=== PATIENT | male | born 1925 | race Caucasian/White ===

== ENCOUNTER 2016-08-26 20:32 | Emergency (ER) | payer OTHER ==
[~2016-08-26] VITALS: Ht 157.5 cm; Wt 61.2 kg
[~2016-08-26 20:32] MED LIST: ACIDOPHILUS1 EACH PO; ASMANEX220 MC1 PO; ASPIRIN EC81 M1 PO; BACTRIM DS TAB1 EACH PO; COMBIVENT RESPIM4 GM PO; FERROUS SULFAT325 M3 PO; FINASTERIDE5 MG PO; FUROSEMIDE40 M1 PO; GLIPIZIDE10 M2 PO; JANUVIA100 M1 PO; LEVEMIR FL100 UNIT/1 SC; LEVEMIR100 UNIT/1 SC; LOPRESSOR 25MG25 MG PO; METFORMIN HCL500 M3 PO; METOLAZONE2.5 M1 PO; METOPROLOL TART25 M1 PO; NITROSTAT0.4 MG TOP; NOVOLOG MI100 UNIT/2 SC; NOVOLOG100 UNIT/2; NOVOLOG100 UNIT/2 SC; PERCOCET 5-3251 EACH PO; PIOGLITAZONE15 MG PO; POTASSIUM CHLO10 ME4 PO; SENNA8.6 M3 PO; SIMVASTATIN20 M2 PO; TAMSULOSIN HYD0.4 MG PO; VITAMIN B-121000 MC3 PO; ZOLPIDEM TARTRAT5 MG PO
[2016-08-26 20:57] LABS: ABSOLUTE BASOPHIL COUNT 0 /CUMM (0.0-0.2); ABSOLUTE EOSINOPHIL COUNT 0.2 /CUMM (0.0-0.7); ABSOLUTE GRANULOCYTE CT 7.1 /CUMM (1.4-6.5); ABSOLUTE LYMPH COUNT 0.8 /CUMM (1.2-3.4); ABSOLUTE MONOCYTE COUNT 0.6 /CUMM (0.10-0.60); BASOPHIL % 0.4 % (0.0-2.0); EOSINOPHIL % 1.9 % (0-5); GRANULOCYTE % 81.5 % (42.2-75.2); HEMATOCRIT 32.1 % (42-52); MEAN CORPUSCULAR HGB 31.7 PG (27.0-31.0); MEAN CORPUSCULAR HGB CONC 33.3 G/DL (33.0-37.0); MEAN PLATELET VOLUME 6.8 FL (7.4-10.4); PLATELET COUNT 335 /CUMM (130-400); RBC DISTRIBUTION WIDTH 13.9 % (11.5-14.5); RED BLOOD CELL CT 3.38 /CUMM (4.70-6.10); WHITE BLOOD CELL COUNT 8.8 /CUMM (4.8-10.8)
--- NOTE | 2016-08-26 22:57 | RADIOLOGY REPORT ---
EXAMINATION: XR ABDOMEN MULTIPLE VIEWS CLINICAL INDICATION: Obstipation COMPARISON: None TECHNIQUE: Upright supine abdomen FINDINGS: Large volume of gas in the colon. The cecum is distended to a transverse diameter of 12 cm. There is moderate volume of stool in the colon. Most of the stool is in the transverse and descending colon. Colonic bowel loops appear to be redundant. No significant gaseous distention of the small bowel loops. No evidence of pneumatosis or free air. Bowel pattern may be chronic or due to distal large bowel obstruction. Sternal suture wires seen lower chest. Surgical clips in the right groin. Multilevel degenerative change of the spine. IMPRESSION: Large volume of gas in large bowel. Moderate volume of stool in the colon most of which is in the transverse colon. Bowel pattern could be chronic or due to distal large bowel obstruction.
--- NOTE | 2016-08-27 00:20 | ED GI/GU/ABDOMINAL COMPLAINT ---
History of Present Illness General Chief Complaint: Abdominal Pain/Flank Pain Stated Complaint: CONSTIPATION X3 DAYS, ABD PAIN Source: patient, family, old records Exam Limitations: no limitations Vital Signs & Intake/Output Vital Signs & Intake/Output Vital Signs Date Time Temp Pulse Resp B/P B/P Pulse O2 O2 Flow FiO2 Mean Ox Delivery Rate 08/27 0246 97.2 82 18 127/65 96 Room Air 08/26 2254 96.8 97 20 173/83 97 Room Air 08/26 2039 99.0 90 20 162/72 97 Room Air ED Intake and Output 08/27 0000 08/26 1200 Intake Total Output Total Balance Patient 135 lb Weight Weight Reported by Patient Measurement Method Allergies Coded Allergies: polymyxin B (RASH 08/26/16) Reconcile Medications Cyanocobalamin (Vitamin B-12) 1,000 MCG TABLET 1 TAB PO DAILY SUPPLEMENT ( Reported) Ferrous Sulfate 325 MG TABLET 1 TAB PO 1700 SUPPLEMENT (Reported) Furosemide 40 MG TABLET 1 TAB PO BID WATER PILL (Reported) Insulin Aspart (Novolog) 100 UNIT/1 ML VIAL 0 UNITS SC TIDAC diabetes BEFORE MEALS Blood Insulin Sugar Units <80 0 81-100 0 101-150 2 UNITS 151-200 3 UNITS 201-250 4 UNITS 251-300 5 UNITS 301-350 6 UNITS 351-400 6 UNITS >400 8 UNITS & Call Doctor Insulin Detemir (Levemir Flextouch) 100 UNIT/1 ML INSULN.PEN 8 UNITS SC DAILY DIABETES Ipratropium/Albuterol Sulfate (Combivent Respimat Inhal [place]) 4 GM MIST.INHAL 2 PUFF PO DAILY BREATHING PROBLEMS (Reported) Metoprolol Tartrate 25 MG TABLET 0.5 TAB PO BID HEART (Reported) Mometasone Furoate (Asmanex) 220 MCG AER.POW.BA 2 PUFF PO AT BEDTIME copd ( Reported) Simvastatin (Simvastatin*) 20 MG TABLET 1 TAB PO QPM CHOLESTEROL (Reported) Triage Note: PT TO ED C/O ACHING PAIN ACROSS LOW ABD CONSTANT SINCE YESTERDAY AFTERNOON. DENIES N/V/D. HAS INDWELLING HOOD CATH MARY LEG BAG. USUALLY MOVES BOWELS ONCE A DAY, SOMETIMES GOES LONGER, EVERY 2-3 DAYS. STATES NO BM FOR 3 DAYS AND 2 DAYS PRIOR WERE SMALL BM'S. PMH OF IDDM. DID NOT EAT DINNER TONIGHT, DID NOT TAKE INSULIN TONIGHT. 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 yes Onset: 3 days Duration: day(s):, constant, continues in ED, getting worse Timing: recent history Quality/Severity: aching, fullness, moderate Location: generalized abdomen Radiation: no radiation Activities at Onset: none Prior Abdominal Problems: similar symptoms Past Sexual History: Unobtainable at this time Modifying Factors: Worsens With: eating, palpation. Associated Symptoms: abdominal pain, loss of appetite HPI: 3 days prior to admission patient last moved his bowels. 2 days prior to this he notes passing only small amounts of fecal matter. He complains of generalized abdominal pain worse with eating palpation decreased appetite. He denies fever chills nausea vomiting diarrhea chest pain cough shortness of breath headache dysuria rash bleeding. Past History Travel History Traveled to [place] past 21 day No Medical History Any Pertinent Medical History? see below for history Neurological: NONE EENT: NONE Cardiovascular: CAD, CHF, hypertension, DYSLIPIDEMIA ISCHEMIC HEART DISEASE Respiratory: COPD Gastrointestinal: NONE Hepatic: NONE Renal: benign prost hyperplasia, URINARY RETENTION Musculoskeletal: TOE AMPUTATION Psychiatric: NONE Endocrine: diabetes Blood Disorders: NONE Cancer(s): NONE History of MRSA: No History of VRE: Yes History of CDIFF: No Pneumonia Vaccine: 09/16/13 Surgical History Surgical History: CABG, Toe amputations Psychosocial History Who do you live with Son Services at Home Nursing What is your primary language Jordanian Tobacco Use: Quit >30 days ago ETOH Use: occasional use Illicit Drug Use: denies illicit drug use Family History Family History, If Any: FATHER Relation not specified for: FH: stomach cancer Hx Contributory? No Review of Systems Review of Systems Constitutional: Reports: no symptoms. EENTM: Reports: no symptoms. Respiratory: Reports: no symptoms. Cardiovascular: Reports: no symptoms. GI: Reports: see HPI, abdominal pain, bloating, constipation. Genitourinary: Reports: no symptoms. Musculoskeletal: Reports: no symptoms. Skin: Reports: no symptoms. Neurological/Psychological: Reports: no symptoms. Hematologic/Endocrine: Reports: no symptoms. Immunologic/Allergic: Reports: no symptoms. All Other Systems: Reviewed and Negative Physical Exam Physical Exam General Appearance: well developed/nourished, alert, awake, anxious, moderate distress, obese Head: atraumatic, normal appearance Eyes: Bilateral: normal appearance, PERRL, EOMI, normal inspection. Ears, Nose, Throat, Mouth: hearing grossly normal, moist mucous membrane Neck: normal inspection, supple, full range of motion, normal alignment, no midline tenderness Respiratory: normal breath sounds, chest non-tender, no respiratory distress, quiet respiration, lungs clear Cardiovascular: regular rate/rhythm, normal peripheral pulses, norml femoral pulses equa Peripheral Pulses: 4+ carotid (R), 4+ carotid (L) Gastrointestinal: normal bowel sounds, soft, distention Male Genitals: normal genitalia Back: normal inspection, normal range of motion Extremities: normal range of motion, no ligament instability Neurologic/Psych: no motor/sensory deficits, awake, alert, oriented x 3, normal gait, normal mood/affect, 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 No Severe Sepsis Present: No Septic Shock Present: No Progress Differential Diagnosis: bowel obstruction Plan of Care: Orders Procedure Date/time Status Enema 08/27 133 Active Enema 08/26 2312 Active COMPREHENSIVE METABOLIC PANEL 08/26 2044 Complete CBC WITHOUT DIFFERENTIAL 08/26 2044 Complete Laboratory Tests 08/26/162047: Anion Gap 14, Estimated GFR 48 L, BUN/Creatinine Ratio 45.0 H, Glucose 230 H, Calcium 8.8, Total Bilirubin 0.4, AST 20, ALT 36, Alkaline Phosphatase 112, Total Protein 7.0, Albumin 4.2, Globulin 2.8, Albumin/Globulin Ratio 1.5, CBC w Diff NO MAN DIFF REQ, RBC 3.38 L, MCV 95.0 H, MCH 31.7 H, RDW 13.9, MPV 6.8 L, Gran % 81.5 H, Lymphocytes % 8.9 L, Monocytes % 7.3, Eosinophils % 1.9, Basophils % 0.4, Absolute Granulocytes 7.1 H, Absolute Lymphocytes 0.8 L, Absolute Monocytes 0.6, Absolute Eosinophils 0.2, Absolute Basophils 0, PUBS MCHC 33.3 Diagnostic Imaging: Viewed by Me: Radiology Read. Discussed w/RAD: Radiology Read. Radiology Impression: Large volume of gas in large bowel. Moderate volume of stool in the colon most of which is in the transverse colon. Bowel pattern could be chronic or due to distal large bowel obstruction. Initial ED EKG: none Comments: Improved after enemas, mag citrate. Departure Departure Time of Disposition: 0600 Disposition: HOME OR SELF CARE Condition: Stable Clinical Impression Primary Impression: Obstipation Referrals: Ruby LEDESMA MD (PCP/Family) Departure Forms: Customer Survey General Discharge Information Prescriptions: Current Visit Scripts Peg 3350/Na Sulf,Bicarb,Cl/KCl (Golytely Solution) 0 PO SEE ADMIN CRITERIA #1 GAL 1 cup every 10 minutes until rectal effluent runs clear
[2016-08-27] MEDS ORDERED: GOLYTELY SOLU4000 ML PO (05:39)
[2016-08-27 06:16] VITALS: BP 121/70
== END 2016-08-27 06:32 ==
LOC: ERH 20:32
PROVIDERS: Emergency Medicine
DX: K59.00 Constipation, unspecified (principal)
CPT/HCPCS: 74020

== ENCOUNTER 2016-10-01 14:20 | Emergency (ER) | payer OTHER ==
[~2016-10-01] VITALS: Ht 157.5 cm; Wt 64.4 kg
[~2016-10-01 14:20] MED LIST changes: +GOLYTELY SOLU4000 ML PO
--- NOTE | 2016-10-01 15:15 | RADIOLOGY REPORT ---
EXAMINATION: XR HIP, RIGHT CLINICAL INFORMATION: Trauma COMPARISON: 01/03/2012 TECHNIQUE: Two views of the right hip. AP pelvis FINDINGS: AP pelvis: Moderate to bilateral osteoarthritis in the hips. No significant progression on the right. The pelvic ring is intact. No acute fracture. Pronounced degenerative changes in the lower lumbar spine. Extensive vascular calcification. Surgical clips reidentified in the medial right thigh. Right hip: Moderate osteoarthritis. No acute fracture or dislocation. Extensive vascular disease. Surgical clips again noted in the medial right thigh. IMPRESSION: No acute fracture or dislocation. Chronic osteoarthritis. Severe atherosclerotic peripheral vascular disease.
--- NOTE | 2016-10-01 15:17 | RADIOLOGY REPORT ---
EXAMINATION: XR KNEE, RIGHT CLINICAL INFORMATION: Trauma COMPARISON: 01/03/2012 TECHNIQUE: Four views of the right knee. FINDINGS: Severe 3 compartment degenerative disease. No significant effusion (lateral radiograph limited by leg straightening). No acute fracture or dislocation. Severe peripheral vascular disease. Vascular clips again noted. IMPRESSION: Severe, progressive osteoarthritis. No acute fracture or dislocation. Peripheral vascular disease.
--- NOTE | 2016-10-01 16:46 | ED UPPER/LOWER EXTREMITY COMPL ---
History of Present Illness General Chief Complaint: Lower Extremity Problems Stated Complaint: FALL LOWER LEG PAIN Source: patient, family Exam Limitations: no limitations Vital Signs & Intake/Output Vital Signs & Intake/Output Vital Signs Date Time Temp Pulse Resp B/P B/P Pulse O2 O2 Flow FiO2 Mean Ox Delivery Rate 10/01 1851 97.8 84 18 132/74 98 Room Air 10/01 1430 97.5 80 20 123/67 97 Room Air Allergies Coded Allergies: polymyxin B (RASH 08/26/16) Reconcile Medications Cyanocobalamin (Vitamin B-12) 1,000 MCG TABLET 1 TAB PO DAILY SUPPLEMENT ( Reported) Ferrous Sulfate 325 MG TABLET 1 TAB PO 1700 SUPPLEMENT (Reported) Furosemide 40 MG TABLET 1 TAB PO BID WATER PILL (Reported) Insulin Aspart (Novolog) 100 UNIT/1 ML VIAL 0 UNITS SC TIDAC diabetes BEFORE MEALS Blood Insulin Sugar Units <80 0 81-100 0 101-150 2 UNITS 151-200 3 UNITS 201-250 4 UNITS 251-300 5 UNITS 301-350 6 UNITS 351-400 6 UNITS >400 8 UNITS & Call Doctor Insulin Detemir (Levemir Flextouch) 100 UNIT/1 ML INSULN.PEN 8 UNITS SC DAILY DIABETES Ipratropium/Albuterol Sulfate (Combivent Respimat Inhal [place]) 4 GM MIST.INHAL 2 PUFF PO DAILY BREATHING PROBLEMS (Reported) Metoprolol Tartrate 25 MG TABLET 0.5 TAB PO BID HEART (Reported) Mometasone Furoate (Asmanex) 220 MCG AER.POW.BA 2 PUFF PO AT BEDTIME copd ( Reported) Peg 3350/Na Sulf,Bicarb,Cl/KCl (Golytely Solution) 236-22.74G SOLN.RECON 0 PO SEE ADMIN CRITERIA obstipation 1 cup every 10 minutes until rectal effluent runs clear Simvastatin (Simvastatin*) 20 MG TABLET 1 TAB PO QPM CHOLESTEROL (Reported) Triage Note: FELL BACK AGAINST THE WALL TUESDAY INJURING RIGHT ARM AND LEG. SON STATES HE IS HAVING TROUBLE LIFTING RIGHT LEG TODAY. PT STATES HE TRIPPED WHEN HE FELL AGAINST THE WALL Triage Nurses Notes Reviewed? yes Onset: Abrupt Duration: constant Timing: recent history Severity: mild Severity Numbers: 3 HPI: Patient is a 89-year-old male with past medical history of CAD status post bypass surgery, hypertension, hyperlipidemia, diabetes with multiple toe amputations states that he was in his normal state health on Tuesday, 3 days ago where he was trying to use his feet to push a pedal for the garbage can TO open in a standing position, WITH HIS walker BY HIS SIDE WHEN he subsequently lost his balance and fell backwards to the wall. Patient since has been complaining of bilateral knee pain and right hip pain. Patient states that ambulation with a walker makes worse to his knees and right hip Patient denies any preceding episode lightheaded sensation of dizziness denies any head strike loss of consciousness neck pain and back pain. Son who is present states that they were concerned of patient having decreased ability to ambulate since the injury however he has been weightbearing (ROBBY SMITH) Past History Travel History Traveled to [place] past 21 day No Medical History Any Pertinent Medical History? see below for history Neurological: NONE EENT: NONE Cardiovascular: CAD, CHF, hypertension, DYSLIPIDEMIA ISCHEMIC HEART DISEASE Respiratory: COPD Gastrointestinal: NONE Hepatic: NONE Renal: benign prost hyperplasia, URINARY RETENTION Musculoskeletal: TOE AMPUTATION Psychiatric: NONE Endocrine: diabetes Blood Disorders: NONE Cancer(s): NONE History of MRSA: No History of VRE: Yes History of CDIFF: No Surgical History Surgical History: CABG, Toe amputations Psychosocial History Who do you live with Son Services at Home Nursing What is your primary language Croatian Tobacco Use: Never used ETOH Use: occasional use Illicit Drug Use: denies illicit drug use Family History Family History, If Any: FATHER Relation not specified for: FH: stomach cancer Hx Contributory? No (ROBBY SMITH) Review of Systems Review of Systems Constitutional: Reports: no symptoms. EENTM: Reports: no symptoms. Respiratory: Reports: no symptoms. Cardiovascular: Reports: no symptoms. Gastrointestinal/Abdominal: Reports: no symptoms. Genitourinary: Reports: no symptoms. Musculoskeletal: Reports: see HPI, joint pain. Skin: Reports: no symptoms. Neurological/Psychological: Reports: no symptoms. Hematologic/Endocrine: Reports: no symptoms. Immunological: Reports: no symptoms. All Other Systems: Reviewed and Negative (ROBBY SMITH) Physical Exam Physical Exam General Appearance: no apparent distress, alert Neurologic/Tendon: normal sensation, normal motor functions, normal tendon functions, responds to pain, no evidence tendon injury, no pulse deficit Comments: Well-developed well-nourished person in no acute distress HEENT: Normal EENT exam Neck: Supple, no lymphadenopathy, normal range of motion without pain or tenderness No central spinous tenderness Back: Nontender, no central spinous tendernessCardiovascular: Regular rate and rhythms no murmurs rubs or gallops, normal JVP Respiratory: Chest nontender. No respiratory distress.breath sounds clear to auscultation bilaterally Abdomen: Soft, nontender nondistended, no appreciable organomegaly. Normal bowel sounds. No ascites Extremity: No edema, no calf tenderness to palpation, normal and equal pulses. Right hip normal inspection full active range of motion nontender Right knee normal inspection full active range of motion mild generalized point tenderness noted Left knee normal inspection full active range of motion noted mild generalized point tenderness noted Neuro: Alert oriented x3, motor sensory normal, Skin: No appreciable rash on exposed skin, skin is warm and dry. Psych: Mood and affect is normal, memory and judgment is normal. (ROBBY SMITH) Progress Differential Diagnosis: arterial insufficiency, compartment syndrome, contusion, dislocation, DVT, fracture, gout, septic arthritis, sprain, tendon injury Plan of Care: Orders Procedure Date/time Status CASE MANAGEMENT CONSULT 10/01 1750 Active Patient due to history of present illness and exam findings has concerns a mechanical fall Patient is acting at baseline. No central spinous pain No acute osseous injury or fractures after x-rays were resulted for where patient was complaining of pain with ambulation. Patient had full active and resisted range of motion noted with bilateral lower extremities. Patient also was noted to be supervised with ambulation with a walker in the emergency room and noted to be normal steady gait with mild bilateral knee pain complaints patient states that his pain is at baseline due to his severe arthritis Patient denies any fever chills and is otherwise without complaints. At rest patient has no complaints of pain Discussed disposition plan with son and patient who feel comfortable patient to return at home and which son lives with patient. Case management evaluated patient and will provide home health services evaluation. Discussed disposition plan with DR. TURPIN who agrees (ROBBY SMITH) Diagnostic Imaging: Viewed by Me: Radiology Read. Radiology Impression: no acute abnormality, no fracture Comments: PATIENT: MAY MEJÍA PRESENT AGE: 89 PATIENT ACCOUNT NO: [id number] : [birth year] LOCATION: ER ORDERING PHYSICIAN: DOMINGUEZ TURPIN DO (TBS) SERVICE DATE: 10/01/16-1432 EXAM TYPE: RAD - XRY-HIP 2-3 VIEWS, RIGHT EXAMINATION: XR HIP, RIGHT CLINICAL INFORMATION: Trauma COMPARISON: 01/03/2012 TECHNIQUE: Two views of the right hip. AP pelvis FINDINGS: AP pelvis: Moderate to bilateral osteoarthritis in the hips. No significant progression on the right. The pelvic ring is intact. No acute fracture. Pronounced degenerative changes in the lower lumbar spine. Extensive vascular calcification. Surgical clips reidentified in the medial right thigh. Right hip: Moderate osteoarthritis. No acute fracture or dislocation. Extensive vascular disease. Surgical clips again noted in the medial right thigh. IMPRESSION: No acute fracture or dislocation. Chronic osteoarthritis. Severe atherosclerotic peripheral vascular disease. PATIENT: MAY MEJÍA PRESENT AGE: 89 PATIENT ACCOUNT NO: [id number] : [birth year] LOCATION: [facility] ORDERING PHYSICIAN: DOMINGUEZ TURPIN DO (TBS) SERVICE DATE: 10/01/16 EXAM TYPE: RAD - XRY-KNEE COMPLETE RIGHT EXAMINATION: XR KNEE, RIGHT CLINICAL INFORMATION: Trauma COMPARISON: 01/03/2012 TECHNIQUE: Four views of the right knee. FINDINGS: Severe 3 compartment degenerative disease. No significant effusion (lateral radiograph limited by leg straightening). No acute fracture or dislocation. Severe peripheral vascular disease. Vascular clips again noted. IMPRESSION: Severe, progressive osteoarthritis. No acute fracture or dislocation. Peripheral vascular disease. DICTATED BY: CHA NAIR MD (ROBBY SMITH) Departure Departure Disposition: HOME OR SELF CARE Condition: Stable Clinical Impression Primary Impression: Right hip pain Secondary Impressions: Arthritis, Fall, Left knee pain, Right knee pain Referrals: Ruby LEDESMA MD (PCP/Family) Additional Instructions: As discussed continue home medications as directed. Continue using a walker for fall prevention. Begin [id number] Naprosyn as directed for pain and inflammation. If no better in one week follow-up with orthopedic Dr. Corado AND FOLLOW UP WITH YOUR PRIMARY CARE DOCTOR NEXT WEEK. If symptoms worsen return to emergency room. YOU will receive a phone call tomorrow for home health service evaluation. Departure Forms: Customer Survey General Discharge Information (ROBBY SMITH) PA/COTTON PROGRAM TECHNICIAN Co-Sign Statement Statement: ED Attending supervision documentation- [] I saw and evaluated the patient. I have also reviewed all the pertinent lab results and diagnostic results. I agree with the findings and the plan of care as documented in the PA's/COTTON PROGRAM TECHNICIAN's documentation. [x] I have reviewed the ED Record and agree with the PA's/COTTON PROGRAM TECHNICIAN's documentation. [] Additions or exceptions (if any) to the PAs/COTTON PROGRAM TECHNICIAN's note and plan are summarized below: [] (DOMINGUEZ TURPIN DO)
[2016-10-01 18:51] VITALS: BP 132/74
--- NOTE | 2016-10-01 19:40 | NUR ---
Case Kirby TSF: I placed a call to [facility]. Received a call back and they had patient on service in 2009. I will try [facility] to see if they've had him on service this year. Case kirby continuing to follow.
--- NOTE | 2016-10-01 20:00 | NUR ---
Case Mgmnt TSF: I placed a call to [facility] and they did have patient on service earlier this year--in May. I set patient up with [facility] services and they will attempt to go out on Tuesday10/01/16. I have faxed all clinical and received fax confirmation back. Case mgmnt complete.
== END 2016-10-01 19:03 ==
LOC: ERH 14:20
DX: M25.551 Pain in right hip (principal); M25.561 Pain in right knee; M25.562 Pain in left knee; M19.90 Unspecified osteoarthritis, unspecified site
CPT/HCPCS: 73502-RT; 73562-RT